=== PATIENT | female | born 1945 | race Caucasian/White ===

== ENCOUNTER 2019-03-26 07:00 | Day surgery (SDC) | payer MEDICARE ==
[~2019-03-26] VITALS: Ht 162.6 cm; Wt 138.3 kg
[~2019-03-26 07:00] MED LIST: ALBU18HF7 IH; ATEN50TA PO; DULA1.5P SQ; GLIM4TAB3 PO; LEVO75TA4 PO; MAGN250T10 PO; METO5TAB7 PO; POLY17PO4 PO; POTA20PA32 PO; SODIUM CHLORIDE 0.9% 1000ML 1,000 ML IV ONE; TAMO20TA4 PO
[2019-03-26 07:57] VITALS: BP 144/83
[2019-03-26] MEDS ORDERED: PROPOFOL 10 MG/ML 20ML VIAL IV ONE ×2 (09:07→09:30)
[2019-03-26 09:38] VITALS: BP 112/57
[2019-03-26 09:45] VITALS: BP 116/46
[2019-03-26 09:48] VITALS: BP 123/62
[2019-03-26 09:55] VITALS: BP 135/61
== END 2019-03-26 10:08 | disposition home or self-care (01) ==
LOC: DAH 07:00
PROVIDERS: ATTEND Internal Medicine
DX: D12.3 Benign neoplasm of transverse colon (principal); D12.2 Benign neoplasm of ascending colon; K62.1 Rectal polyp; D12.4 Benign neoplasm of descending colon; D12.5 Benign neoplasm of sigmoid colon; K57.30 Diverticulosis of large intestine without perforation or abscess without bleeding; R19.5 Other fecal abnormalities; K64.0 First degree hemorrhoids; I10 Essential (primary) hypertension; E66.01 Morbid (severe) obesity due to excess calories; E78.5 Hyperlipidemia, unspecified; J44.9 Chronic obstructive pulmonary disease, unspecified; E11.9 Type 2 diabetes mellitus without complications; E03.9 Hypothyroidism, unspecified; F15.90 Other stimulant use, unspecified, uncomplicated; Z88.5 Allergy status to narcotic agent; Z88.8 Allergy status to other drugs, medicaments and biological substances; Z72.89 Other problems related to lifestyle; Z79.84 Long term (current) use of oral hypoglycemic drugs; Z79.899 Other long term (current) drug therapy; Z90.710 Acquired absence of both cervix and uterus; Z98.890 Other specified postprocedural states; Z80.0 Family history of malignant neoplasm of digestive organs; Z85.3 Personal history of malignant neoplasm of breast; Z82.49 Family history of ischemic heart disease and other diseases of the circulatory system
CPT/HCPCS: 45380; 45385; 82948; 88305; 93005; A4606; J2704 ×2; J7030

== ENCOUNTER → 2021-02-07 | Outpatient (CLI) | payer MEDICARE ==
[~2021-02-07] MED LIST changes: -GLIM4TAB3 PO; +GLIM4TAB36 PO; -SODIUM CHLORIDE 0.9% 1000ML 1,000 ML IV ONE
== END | disposition home or self-care (01) ==
LOC: RAH 13:11
PROVIDERS: ATTEND Physical Medicine & Rehabilitation
DX: M50.121 Cervical disc disorder at C4-C5 level with radiculopathy (principal); M48.02 Spinal stenosis, cervical region; M25.78 Osteophyte, vertebrae
CPT/HCPCS: 72141